=== PATIENT | male | born 1995 | race Caucasian/White ===

== ENCOUNTER 2018-01-15 20:17 | Emergency (ER) | payer BC ==
[2018-01-15] MEDS ORDERED: CEPHALEXIN 500MG PREPACK#4 BTL TAKEHOME ONE (21:39)
--- NOTE | 2018-01-15 21:40 | EDPHY ---
General - History Smoking Status: Never smoked Time Seen by Provider: 01/15/18 20:50 Narrative: CHIEF COMPLAINT: I cut my Thumb HISTORY OF PRESENT ILLNESS: Patient presents by private vehicle with complaints of laceration to his left thumb. This happened within the past hour. He was working with blown glass, when he was attempting to score a piece of the glass. He says it broke, causing a laceration to the palmar side of the left thumb. He has moderate pain with palpation and movement. Does not radiate. Improved at rest. Some bleeding that stopped with pressure. No difficulty been or straightening the thumb. No injury elsewhere. Tetanus up-to-date. No other associated complaints or modifying factors TIME OF INJURY: Less than 1 hr ago TETANUS STATUS: Up-to-date MEDICAL/SURGICAL/SOCIAL HISTORY: Clavicular ganglion cyst with surgical intervention on Friday. Nonsmoker. Lives independently. Right-hand dominant. REVIEW OF SYSTEMS: Ten systems reviewed and are negative unless otherwise noted in the HPI EXAMINATION: Vitals: Triage VS reviewed General Appearance: Alert, no distress Head: normocephalic, atraumatic Cardiovascular: Symmetric radial pulses with brisk cap refill the fingers left hand. Neurological: A&O, light and 2 point sensory symmetric, ethanol quality leader and interossei strength symmetric Skin: Warm and dry, no rash. There is a 2 cm v-shaped laceration on the palmar side left thumb over the distal phalanx. No foreign body. No pulsatile bleeding Extremities: Nontender, no pedal edema DIFFERENTIAL DIAGNOSES: Including but not limited to laceration, laceration complication, laceration foreign body, laceration with deep tissue injury MDM: 8:50 p.m. Acute laceration to the palmar aspect of the left thumb caused by glass foreign body. He does have moderate pain in the area with neuro intact distally. I have ordered x-ray of the thumb for foreign body. I have administered local anesthesia. Copiously irrigated re-evaluated. 9:20 p.m. X-ray negative for foreign body. Patient re-evaluated. Wound has been copiously irrigated. I have close without difficulty. We discussed wound care. We discussed precautions. He states that he has a scheduled surgery for a ganglion cyst next week, thus I will place him on Keflex for prophylaxis. We discussed ED precautions. We discussed returning here in 7-10 days for suture removal he is comfortable this plan and discharged home stable condition. PROCEDURE: Laceration repair Consent: Verbal Location: Left thumb Length of repair: 2 cm, v-shaped Complexity: Simple Layer involvement: Single Anesthesia: Local. 0.25% Marcaine without epinephrine, Irrigation: Extensive Debridement: None Procedure description: Following good anesthesia, the wound was copiously irrigated. Wound bed was explored with a sterile glove, and there is no foreign body noted. Wound borders were approximated well with good hemostasis. Tolerated well without complication. Suture/Staple material: 5-0 Prolene, 5 simple ruptured sutures Wound care: Routine as discussed Suture/Staple removal:7-10 Days SUPERVISION: This patient was independently evaluated without direct involvement of or examination by the attending physician. ED Precautions: Worsening pain. Erythema, edema, cyanosis, pallor, paresthesia or anesthesia. (Koffi Hallman) Discussion: The patient was evaluated and managed by the Physician Bundle Cutter. My co- signature indicates that I have reviewed this chart and I agree with the findings and plan of care as documented. I am the secondary supervising physician. (Safia Blevins) - Objective Vital Signs: Initial Vital Signs Temperature (C) 37.0 C 01/15/18 20:25 Heart Rate 98 01/15/18 20:25 Respiratory Rate 18 01/15/18 20:25 Blood Pressure 120/84 H 01/15/18 20:25 O2 Sat (%) 97 01/15/18 20:25 O2 Delivery Mode Room Air Allergies/Adverse Reactions: No Known Allergies Allergy (Unverified 01/15/18 20:25) Home Medications: Medication Instructions Recorded Cephalexin [Keflex (*)] 500 mg PO TID #21 cap 01/15/18 Medications Given: Discontinued Medications Cephalexin (Keflex 500 Mg Prepack#4) 1 btl TAKEHOME EDNOW ONE PRN Reason: Protocol Stop: 01/15/18 21:40 Last Admin: 01/15/18 21:54 Dose: 1 btl Departure - Departure Disposition: Home, Routine, Self-Care Clinical Impression: Laceration of thumb without foreign body without damage to nail Condition: Good Instructions: Cephalexin (By mouth), Care For Your Stitches (ED), Finger Laceration (ED) Additional Instructions: 1. Keep your current dressing in place for the next 48 hr 2. Keep the wound covered while showering for the next 3 days 3. Daily wound care as discussed 4. Return here for suture removal in 7-10 days 5. Return here for signs of infection as discussed including warmth, redness, fever, drainage from the site 6. return here for increasing pain surrounding the laceration 7. Do not submerge the wound in any water, hot tub, swimming pool until sutures removed Referrals: Physician,Emergency Dept, [Medical Doctor] - As per Instructions (7-10 days for suture removal) Prescriptions: Cephalexin [Keflex (*)] 500 mg PO TID #21 cap
[2018-01-15 22:12] VITALS: BP 114/80
== END 2018-01-15 22:12 | disposition home or self-care (01) ==
PROC: 0HQGXZZ Repair Left Hand Skin, External Approach (ICD-10-PCS; principal; 2018-01-15)
DX: S61.012A Laceration without foreign body of left thumb without damage to nail, initial encounter (principal); W25.XXXA Contact with sharp glass, initial encounter; Y92.9 Unspecified place or not applicable; Y93.89 Activity, other specified; Y99.9 Unspecified external cause status